=== PATIENT | male | born 1980 | race Asian ===

== ENCOUNTER → 2016-11-16 | Outpatient (CLI) | payer MEDICAID ==
--- NOTE | 2016-11-16 17:50 | DX ---
Thoracolumbar spine series AP and lateral 0823 hours. History: Followup compression fracture. Findings: Comparison to August 17, 2016 and studies dating back to May 04, 2016. Mild anterior wedge compression fracture is once again seen more prominent toward the right-side of T 8 with minimal left-sided anterior wedge compression of T12. The study is visualized to the superior endplate of T6. 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 The remainder the vertebral body heig hts are well-maintained. There are no subluxations. Intervertebral disk spaces are normal. There are no lytic or sclerotic osseous lesions. Impression: 1. Mild anterior wedge compression fracture of T8 slightly more prominent toward the right-side. 2. Minimal anterior wedge compression fracture left superior endplate of T12. 3. 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
== END ==
LOC: FIMAGING 08:09
PROVIDERS: ATTEND Physician Assistant Surgical
DX: S22.000D Wedge compression fracture of unspecified thoracic vertebra, subsequent encounter for fracture with routine healing (principal)